=== PATIENT | female | born 1940 | race Caucasian/White ===

== ENCOUNTER → 2017-03-09 | Outpatient (CLI) | payer MEDICARE, OTHER ==
[~2017-03-09] MED LIST: ASPIRIN E.C. 8181 MG PO; FOSAMAX 70MG TA70 MG PO; LEVOTHYROXINE0.05 MG PO; NORCO 325 MG-51 TAB PO; SYNTHROID0.075 MG/T PO
== END ==
LOC: MC.RAD 13:40
DX: Z12.31 Encounter for screening mammogram for malignant neoplasm of breast (principal)

== ENCOUNTER → 2018-04-08 | Outpatient (CLI) | payer MEDICARE, OTHER | LOC: MC.RAD 07:55 | DX: Z12.31 Encounter for screening mammogram for malignant neoplasm of breast (principal); Z78.0 Asymptomatic menopausal state ==

== ENCOUNTER → 2019-05-02 | Outpatient (CLI) | payer MEDICARE, OTHER | LOC: MC.RAD 09:31 | DX: Z12.31 Encounter for screening mammogram for malignant neoplasm of breast (principal); N64.89 Other specified disorders of breast ==

== ENCOUNTER → 2019-05-07 | Outpatient (CLI) | payer MEDICARE, OTHER | LOC: MC.RAD 09:10 | DX: N64.89 Other specified disorders of breast (principal) ==

== ENCOUNTER → 2019-11-10 | Outpatient (CLI) | payer MEDICARE, OTHER | LOC: MC.RAD 07:15 | DX: N63.11 Unspecified lump in the right breast, upper outer quadrant (principal) ==

== ENCOUNTER → 2020-05-13 | Outpatient (CLI) | payer MEDICARE, OTHER | LOC: MC.RAD 09:31 | DX: Z12.31 Encounter for screening mammogram for malignant neoplasm of breast (principal) ==

== ENCOUNTER → 2021-06-08 | Outpatient (CLI) | payer MEDICARE, OTHER | LOC: MC.RAD 08:15 | DX: Z12.31 Encounter for screening mammogram for malignant neoplasm of breast (principal) ==

== ENCOUNTER → 2023-05-09 | Outpatient (CLI) | payer MEDICARE, OTHER | LOC: COL.RAD 12:36 | DX: K22.4 Dyskinesia of esophagus (principal); K21.9 Gastro-esophageal reflux disease without esophagitis ==